=== PATIENT | female | born 1995 | race Native Hawaiian/Other Pacific Islander ===

== ENCOUNTER 2024-03-28 18:09 | Inpatient (IN) | payer OTHER ==
[~2024-03-28] VITALS: Ht 157.5 cm; Wt 75.5 kg
[2024-03-28 22:06] VITALS: BP 135/87; PULSE 93; RESP 18; TEMP 98.3; O2SAT 97
[2024-03-28] MEDS ORDERED: ONDANSETRON HCL 4 MG/2 ML VIAL IV PRN (23:30)
[2024-03-28] MEDS ORDERED: MORPHINE SULFATE INJ 2 MG/ml SYRG IV PRN (23:30)
[2024-03-28] MEDS ORDERED: DOCUSATE SOD 100 MG CAP PO PRN (23:30)
[2024-03-28] MEDS ORDERED: HYDROcodone-ACET 5/325MG TAB PO PRN (23:30)
[2024-03-28] MEDS ORDERED: NITROGLYCERIN 0.4 MG SL TAB SL PRN (23:30)
[2024-03-28 23:39] VITALS: BP 135/87; PULSE 93; RESP 18; TEMP 98.3; O2SAT 97
[2024-03-29] VITALS (7 sets, daily range): BP systolic 102–157; BP diastolic 57–95; PULSE 72–95; RESP 16–20; TEMP 97.4–98.6; O2SAT 96–100
[2024-03-29 00:03] LABS: Monocytes # (auto) 0.7 10 ^3/uL (0-1.3); Neutrophils # (auto) 8.8 10 ^3/uL (1.6-8.6)
[2024-03-29 00:04] LABS: Basophils # (auto) 0.1 10 ^3/uL (0-0.2); Basophils % (auto) 0.7 % (0.0-2.0); Eosinophils # (auto) 0.1 10 ^3/uL (0-0.8); Eosinophils % (auto) 0.5 % (0.0-7.0); Hemoglobin 9.6 g/dL (12.2-16.2); Lymphocytes # (auto) 1.6 10 ^3/uL (0.4-5.4); Lymphocytes % (auto) 14.3 % (10.0-50.0); Mean Corpuscular Hemoglobin 26.3 pg (28.0-32.0); Mean Corpuscular Hgb Conc. 32.2 g/dL (32.0-36.0); Mean Corpuscular Volume 81.7 fL (80.0-100.0); Monocytes % (auto) 6.1 % (0.0-12.0); Neutrophils % (auto) 78.4 % (37.0-80.0); Red Blood Cells 3.67 10^6/uL (4.0-5.20); Red Cell Distribution Width 15.2 % (11.8-14.3); White Blood Cell 11.2 10^3/uL (4.4-10.8)
[2024-03-29 00:19] LABS: Albumin 3.8 g/dL (3.2-4.8); Alkaline Phosphatase 87 U/L (46-116); Anion Gap 8 (5-15); Aspartate Aminotransferase < 8 U/L (13-40); Calcium 9.1 mg/dL (8.5-10.1); Carbon Dioxide 22 mmol/L (20-30); Chloride 106 mmol/L (98-107); Glucose 117 mg/dL (74-106); Potassium 3.4 mmol/L (3.5-5.1); Sodium 136 mmol/L (136-145)
[2024-03-29 00:20] LABS: Bilirubin, Total 0.3 mg/dL (0.2-1.0); Total Protein 6.6 g/dL (5.7-8.2)
[2024-03-29 00:21] LABS: Alanine Aminotransferase < 9 U/L (7-40); BUN/Creatinine Ratio 9.4 (10.0-20.0); Blood Urea Nitrogen < 5 mg/dL (9-23)
[2024-03-29] MEDS: ACETAMINOPHEN 325 MG TAB PO PRN (01:10)
[2024-03-29] MEDS: SODIUM CHLORIDE 0.9% 1,000 ML IV SCH (01:10)
[2024-03-29] MEDS ORDERED: PREN27TA7 OR (01:47)
[2024-03-29] MEDS ORDERED: ASPI-543 PO (01:47)
[2024-03-29] MEDS ORDERED: FERR1TAB31 PO (01:47)
[2024-03-29] MEDS: ceFAZolin 1GM/50ML 50 ML IV SCH (06:01)
[2024-03-29 06:52] LABS: Basophils # (auto) 0 10 ^3/uL (0-0.2); Basophils % (auto) 0.3 % (0.0-2.0); Eosinophils # (auto) 0 10 ^3/uL (0-0.8); Eosinophils % (auto) 0.3 % (0.0-7.0); Hematocrit 28.7 % (36.0-46.0); Hemoglobin 9.2 g/dL (12.2-16.2); Lymphocytes # (auto) 1.7 10 ^3/uL (0.4-5.4); Mean Corpuscular Hemoglobin 26.2 pg (28.0-32.0); Mean Corpuscular Hgb Conc. 32.2 g/dL (32.0-36.0); Mean Corpuscular Volume 81.4 fL (80.0-100.0); Monocytes # (auto) 0.8 10 ^3/uL (0-1.3); Monocytes % (auto) 7.7 % (0.0-12.0); Neutrophils # (auto) 8.1 10 ^3/uL (1.6-8.6); Neutrophils % (auto) 75.7 % (37.0-80.0); Red Blood Cells 3.52 10^6/uL (4.0-5.20); Red Cell Distribution Width 15.2 % (11.8-14.3); White Blood Cell 10.7 10^3/uL (4.4-10.8)
[2024-03-29 07:05] LABS: Albumin 3.5 g/dL (3.2-4.8); Alkaline Phosphatase 81 U/L (46-116); Anion Gap 6 (5-15); Aspartate Aminotransferase < 8 U/L (13-40); Calcium 8.9 mg/dL (8.7-10.4); Carbon Dioxide 25 mmol/L (20-30); Chloride 106 mmol/L (98-107); Glucose 87 mg/dL (74-106); Potassium 3.5 mmol/L (3.5-5.1); Sodium 137 mmol/L (136-145)
[2024-03-29 07:06] LABS: Bilirubin, Total 0.4 mg/dL (0.2-1.0); Total Protein 6.4 g/dL (5.7-8.2)
[2024-03-29 07:17] LABS: Alanine Aminotransferase < 9 U/L (7-40); BUN/Creatinine Ratio 10.9 (10.0-20.0); Blood Urea Nitrogen < 5 mg/dL (9-23)
[2024-03-29] MEDS ORDERED: cefTRIAXone 1GM/50ML D5W 50 ML IV ONE (17:55)
[2024-03-29] MEDS: cefTRIAXone 1GM/50ML D5W 50 ML IV SCH (17:57)
[2024-03-29] MEDS: CLINDAMYCIN 300MG IV 50 ML IV SCH (22:28)
[2024-03-30] VITALS (8 sets, daily range): BP systolic 96–112; BP diastolic 56–68; PULSE 83–100; RESP 16–18; TEMP 98–98.4; O2SAT 96–99
[2024-03-30 06:46] LABS: Basophils # (auto) 0 10 ^3/uL (0-0.2); Basophils % (auto) 0.3 % (0.0-2.0); Eosinophils # (auto) 0 10 ^3/uL (0-0.8); Mean Corpuscular Hgb Conc. 32.5 g/dL (32.0-36.0); Monocytes # (auto) 0.6 10 ^3/uL (0-1.3); Nucleated Red Blood Cells % 0.1 %; Red Cell Distribution Width 15.3 % (11.8-14.3)
[2024-03-30 06:49] LABS: Eosinophils % (auto) 0.2 % (0.0-7.0); Hematocrit 27.6 % (36.0-46.0); Lymphocytes # (auto) 1.5 10 ^3/uL (0.4-5.4); Lymphocytes % (auto) 13.5 % (10.0-50.0); Mean Corpuscular Hemoglobin 26.3 pg (28.0-32.0); Mean Corpuscular Volume 81.1 fL (80.0-100.0); Monocytes % (auto) 5.6 % (0.0-12.0); Neutrophils # (auto) 8.8 10 ^3/uL (1.6-8.6); Neutrophils % (auto) 80.4 % (37.0-80.0); White Blood Cell 10.9 10^3/uL (4.4-10.8)
[2024-03-30 06:50] LABS: INR 0.96 (0.9-1.15); Partial Thromboplastin Time 24.4 SEC (24.5-34.5); Prothrombin Time 10.2 sec (9.3-11.8)
[2024-03-30 07:04] LABS: Chloride 107 mmol/L (98-107); Potassium 3.8 mmol/L (3.5-5.1); Sodium 136 mmol/L (136-145)
[2024-03-30 07:05] LABS: Anion Gap 7 (5-15); Carbon Dioxide 22 mmol/L (20-30)
[2024-03-30 07:06] LABS: Calcium 8.8 mg/dL (8.7-10.4)
[2024-03-30 07:13] LABS: Blood Urea Nitrogen < 5 mg/dL (9-23)
[2024-03-30 07:42] LABS: Glucose 103 mg/dL (74-106)
[2024-03-30] MEDS ORDERED: fentaNYL CITRATE 100 MCG/2 ML VL ONE (11:45)
[2024-03-30] MEDS ORDERED: PROPOFOL 10 MG/ML 20 ML IV ONE (11:45)
[2024-03-30] MEDS ORDERED: LIDOCAINE 2% (LOCAL ANESTH.) PF 5ml SDV ONE (11:46)
[2024-03-30] MEDS ORDERED: ONDANSETRON HCL 4 MG/2 ML VIAL IV ONE (12:30)
[2024-03-30] MEDS ORDERED: HYDROmorphone HCL 2 MG/ML VL/or syr IV PRN (12:30)
[2024-03-30] MEDS ORDERED: MORPHINE SULFATE INJ 2 MG/ml SYRG IV PRN (12:45)
[2024-03-30] MEDS ORDERED: HYDROmorphone HCL 2 MG/ML VL/or syr ONE (12:53)
[2024-03-30] MEDS ORDERED: ONDANSETRON HCL 4 MG/2 ML VIAL ONE (12:54)
[2024-03-30] MEDS: HYDROmorphone HCL 2 MG/ML VL/or syr IV PRN (12:57)
[2024-03-31] VITALS (8 sets, daily range): BP systolic 101–127; BP diastolic 52–72; PULSE 59–97; RESP 16–18; TEMP 97.8–98.3; O2SAT 94–100
[2024-03-31 06:38] LABS: Basophils # (auto) 0 10 ^3/uL (0-0.2); Basophils % (auto) 0.4 % (0.0-2.0); Eosinophils # (auto) 0.1 10 ^3/uL (0-0.8); Eosinophils % (auto) 0.6 % (0.0-7.0); Red Blood Cells 3.44 10^6/uL (4.0-5.20)
[2024-03-31 06:42] LABS: Hematocrit 27.8 % (36.0-46.0); Hemoglobin 8.9 g/dL (12.2-16.2); Lymphocytes # (auto) 1.7 10 ^3/uL (0.4-5.4); Lymphocytes % (auto) 17.7 % (10.0-50.0); Mean Corpuscular Hemoglobin 25.8 pg (28.0-32.0); Mean Corpuscular Hgb Conc. 31.8 g/dL (32.0-36.0); Monocytes # (auto) 0.6 10 ^3/uL (0-1.3); Monocytes % (auto) 6.4 % (0.0-12.0); Neutrophils # (auto) 7.2 10 ^3/uL (1.6-8.6); Neutrophils % (auto) 74.9 % (37.0-80.0); Red Cell Distribution Width 15.3 % (11.8-14.3); White Blood Cell 9.6 10^3/uL (4.4-10.8)
[2024-03-31 06:45] LABS: Anion Gap 6 (5-15); Carbon Dioxide 24 mmol/L (20-30); Chloride 107 mmol/L (98-107); Potassium 3.8 mmol/L (3.5-5.1); Sodium 137 mmol/L (136-145)
[2024-03-31 06:47] LABS: Calcium 8.6 mg/dL (8.5-10.1)
[2024-03-31 06:52] LABS: Glucose 93 mg/dL (74-106)
[2024-03-31 07:03] LABS: BUN/Creatinine Ratio 11.1 (10.0-20.0); Blood Urea Nitrogen < 5 mg/dL (9-23)
[2024-03-31] MEDS: PRENATAL VITAMIN TAB PO SCH (12:50)
[2024-04-01] VITALS (9 sets, daily range): BP systolic 99–134; BP diastolic 51–99; PULSE 84–105; RESP 14–20; TEMP 97.8–99.1; O2SAT 96–98
[2024-04-01 07:09] LABS: Basophils # (auto) 0 10 ^3/uL (0-0.2); Basophils % (auto) 0.4 % (0.0-2.0); Eosinophils # (auto) 0.1 10 ^3/uL (0-0.8); Hemoglobin 8.7 g/dL (12.2-16.2); Monocytes # (auto) 0.6 10 ^3/uL (0-1.3); Neutrophils # (auto) 6.4 10 ^3/uL (1.6-8.6)
[2024-04-01 07:12] LABS: Hematocrit 26.7 % (36.0-46.0); Lymphocytes # (auto) 1.6 10 ^3/uL (0.4-5.4); Lymphocytes % (auto) 18.3 % (10.0-50.0); Mean Corpuscular Hemoglobin 26.4 pg (28.0-32.0); Mean Corpuscular Hgb Conc. 32.4 g/dL (32.0-36.0); Mean Corpuscular Volume 81.3 fL (80.0-100.0); Monocytes % (auto) 6.5 % (0.0-12.0); Neutrophils % (auto) 73.8 % (37.0-80.0); Nucleated Red Blood Cells % 0.1 %; Red Blood Cells 3.28 10^6/uL (4.0-5.20); White Blood Cell 8.7 10^3/uL (4.4-10.8)
[2024-04-02 01:00] VITALS: BP 104/62; PULSE 81; RESP 14; TEMP 98.6; O2SAT 97
[2024-04-02 05:00] VITALS: BP 110/61; PULSE 67; RESP 14; TEMP 98; O2SAT 97
[2024-04-02 08:00] VITALS: BP 112/69; PULSE 76; RESP 16; TEMP 98; O2SAT 91
[2024-04-02 09:00] VITALS: BP 112/69; PULSE 76; RESP 16; TEMP 98; O2SAT 91
[2024-04-02] MEDS ORDERED: CEPH500C PO (12:59)
[2024-04-02 13:00] VITALS: BP 120/75; PULSE 66; RESP 16; TEMP 98.1; O2SAT 99
[2024-04-02 13:02] VITALS: BP 120/75; PULSE 66; RESP 16; TEMP 98.1; O2SAT 99
== END 2024-04-02 15:50 | disposition home or self-care (01) | DRG 819 ==
LOC: WEST WING 22:01
PROVIDERS: ADMIT Nurse Practitioner Family; ATTEND Nurse Practitioner Acute Care
PROC: 0H9U0ZZ Drainage of Left Breast, Open Approach (ICD-10-PCS; principal; 2024-03-30 11:40)
DX: O91.213 Nonpurulent mastitis associated with pregnancy, third trimester (principal); O91.113 Abscess of breast associated with pregnancy, third trimester; O99.213 Obesity complicating pregnancy, third trimester; Z3A.28 28 weeks gestation of pregnancy; Z80.3 Family history of malignant neoplasm of breast; Z79.82 Long term (current) use of aspirin; Z79.899 Other long term (current) drug therapy
CPT/HCPCS: 36415; 76642; 76805; 80048; 80053; 85025; 85610; 85730; 86850; 86900; 86901; 87070; 87075; 87205; G0378; J2001; J2405; J2704; J3490

== ENCOUNTER 2024-07-04 13:13 | Inpatient (IN) | payer OTHER ==
[~2024-07-04] VITALS: Ht 157.5 cm; Wt 14.8 kg
[~2024-07-04 13:13] MED LIST: ASPI-543 PO; CEPH500C PO; FERR1TAB31 PO; PREN27TA7 OR
[2024-07-04 15:13] VITALS: BP 150/94; PULSE 86; RESP 18; TEMP 98.6; O2SAT 97
[2024-07-04 16:00] VITALS: BP 147/90; PULSE 72; RESP 18; TEMP 98.6; O2SAT 97
[2024-07-04] MEDS ORDERED: ONDANSETRON HCL 4 MG/2 ML VIAL IV PRN (16:15)
[2024-07-04] MEDS ORDERED: VANCOMYCIN PER PHARMACY 0 MG IV SCH (16:15)
[2024-07-04] MEDS ORDERED: HYDROmorphone HCL 2 MG/ML VL/or syr IV PRN (16:15)
[2024-07-04] MEDS: VANCOMYCIN 1GM/200ML 200 ML IV ONE (17:24)
[2024-07-04] MEDS: ACETAMINOPHEN 325 MG TAB PO PRN (17:40)
[2024-07-04] MEDS ORDERED: PIPERACILLIN-TAZOB 3.375GM 100 ML IV ONE (18:00)
[2024-07-04] MEDS: PIPERACILLIN-TAZOB 3.375GM 100 ML IV ONE (18:19)
[2024-07-04 18:55] LABS: Eosinophils # (auto) 0.1 10 ^3/uL (0-0.8); Eosinophils % (auto) 1.2 % (0.0-7.0); Hematocrit 41.2 % (36.0-46.0); Hemoglobin 13.4 g/dL (12.2-16.2); Lymphocytes # (auto) 1.9 10 ^3/uL (0.4-5.4); Nucleated Red Blood Cells % 0.1 %; Red Cell Distribution Width 18.1 % (11.8-14.3); White Blood Cell 7.1 10^3/uL (4.4-10.8)
[2024-07-04 18:56] LABS: Basophils # (auto) 0 10 ^3/uL (0-0.2); Basophils % (auto) 0.7 % (0.0-2.0); Lymphocytes % (auto) 26.2 % (10.0-50.0); Mean Corpuscular Hemoglobin 26.4 pg (28.0-32.0); Mean Corpuscular Hgb Conc. 32.5 g/dL (32.0-36.0); Mean Corpuscular Volume 81.2 fL (80.0-100.0); Monocytes # (auto) 0.3 10 ^3/uL (0-1.3); Monocytes % (auto) 4.7 % (0.0-12.0); Neutrophils # (auto) 4.8 10 ^3/uL (1.6-8.6); Neutrophils % (auto) 67.2 % (37.0-80.0); Platelet Count (auto) 322 10^3/uL (140-450); Red Blood Cells 5.08 10^6/uL (4.0-5.20)
[2024-07-04 19:10] LABS: Prothrombin Time 10.6 sec (9.3-11.8)
[2024-07-04 19:14] LABS: Alanine Aminotransferase 19 U/L (7-40); Albumin 4.5 g/dL (3.2-4.8); Alkaline Phosphatase 84 U/L (46-116); Anion Gap 6 (5-15); Aspartate Aminotransferase 14 U/L (13-40); BUN/Creatinine Ratio 10.6 (10.0-20.0); Bilirubin, Total 0.4 mg/dL (0.2-1.0); Blood Urea Nitrogen 7 mg/dL (9-23); CRP High Sensitivity 0.84 mg/dL (<1.0); Calcium 9.1 mg/dL (8.7-10.4); Carbon Dioxide 26 mmol/L (20-30); Chloride 108 mmol/L (98-107); Glucose 86 mg/dL (74-106); Potassium 3.8 mmol/L (3.5-5.1); Sodium 140 mmol/L (136-145); Total Protein 7.4 g/dL (5.7-8.2)
[2024-07-04] MEDS: LACTATED RINGER'S 1,000 ML IV SCH (19:30)
[2024-07-04 20:00] VITALS: PULSE 72; RESP 18; O2SAT 97
[2024-07-04] MEDS: SODIUM CHLOR 0.9% PF (SALINE LOCK) 10ML VIAL/SYR IV SCH (21:33)
[2024-07-05] MEDS: VANCOMYCIN 1GM/200ML 200 ML IV SCH ×2 (01:28→21:06)
[2024-07-05] MEDS: PIPERACILLIN-TAZOB 3.375GM 100 ML IV SCH (02:45)
[2024-07-05 07:21] LABS: Alanine Aminotransferase 12 U/L (7-40); Alkaline Phosphatase 77 U/L (46-116); Anion Gap 7 (5-15); BUN/Creatinine Ratio 8.7 (10.0-20.0); Blood Urea Nitrogen 6 mg/dL (9-23); Calcium 8.9 mg/dL (8.7-10.4); Carbon Dioxide 23 mmol/L (20-30); Chloride 109 mmol/L (98-107); Glucose 90 mg/dL (74-106); Potassium 3.7 mmol/L (3.5-5.1); Sodium 139 mmol/L (136-145)
[2024-07-05 07:22] LABS: Albumin 4.1 g/dL (3.2-4.8); Aspartate Aminotransferase 14 U/L (13-40); Basophils # (auto) 0.1 10 ^3/uL (0-0.2); Basophils % (auto) 0.9 % (0.0-2.0); Eosinophils # (auto) 0.2 10 ^3/uL (0-0.8); Eosinophils % (auto) 2.8 % (0.0-7.0); Hematocrit 40.8 % (36.0-46.0); Hemoglobin 13.5 g/dL (12.2-16.2); Lymphocytes # (auto) 1.4 10 ^3/uL (0.4-5.4); Mean Corpuscular Hgb Conc. 33.2 g/dL (32.0-36.0); Mean Corpuscular Volume 81.2 fL (80.0-100.0); Monocytes # (auto) 0.4 10 ^3/uL (0-1.3); Monocytes % (auto) 6.1 % (0.0-12.0); Neutrophils # (auto) 3.9 10 ^3/uL (1.6-8.6); Neutrophils % (auto) 66.2 % (37.0-80.0); Nucleated Red Blood Cells % 0.1 %; Platelet Count (auto) 262 10^3/uL (140-450); Red Blood Cells 5.02 10^6/uL (4.0-5.20); Red Cell Distribution Width 17.7 % (11.8-14.3); White Blood Cell 5.9 10^3/uL (4.4-10.8)
[2024-07-05 07:23] LABS: Bilirubin, Total 0.6 mg/dL (0.2-1.0); Total Protein 6.8 g/dL (5.7-8.2)
[2024-07-05 09:00] VITALS: BP 139/102; PULSE 70; RESP 14; TEMP 98.2; O2SAT 99
[2024-07-05 13:00] VITALS: BP 151/88; PULSE 65; RESP 16; TEMP 98.5; O2SAT 100
[2024-07-05 17:00] VITALS: BP 124/77; PULSE 77; RESP 18; TEMP 98.4; O2SAT 97
[2024-07-05 20:00] VITALS: PULSE 75; RESP 21; O2SAT 98
[2024-07-05 21:00] VITALS: BP 136/91; PULSE 75; RESP 21; TEMP 97.8; O2SAT 98
[2024-07-06 01:00] VITALS: BP 138/94; PULSE 73; RESP 20; TEMP 98.1; O2SAT 96
[2024-07-06 05:00] VITALS: BP 138/91; PULSE 69; RESP 18; TEMP 98.3; O2SAT 98
[2024-07-06 06:34] LABS: Basophils # (auto) 0 10 ^3/uL (0-0.2); Basophils % (auto) 0.5 % (0.0-2.0); Lymphocytes # (auto) 1.4 10 ^3/uL (0.4-5.4); Monocytes # (auto) 0.4 10 ^3/uL (0-1.3); Neutrophils # (auto) 4.8 10 ^3/uL (1.6-8.6); White Blood Cell 6.8 10^3/uL (4.4-10.8)
[2024-07-06 06:38] LABS: Eosinophils # (auto) 0.2 10 ^3/uL (0-0.8); Eosinophils % (auto) 2.4 % (0.0-7.0); Hematocrit 40.6 % (36.0-46.0); Hemoglobin 13.4 g/dL (12.2-16.2); Lymphocytes % (auto) 20.4 % (10.0-50.0); Mean Corpuscular Hemoglobin 26.9 pg (28.0-32.0); Mean Corpuscular Volume 81.6 fL (80.0-100.0); Monocytes % (auto) 6.5 % (0.0-12.0); Neutrophils % (auto) 70.2 % (37.0-80.0); Nucleated Red Blood Cells % 0.2 %; Platelet Count (auto) 272 10^3/uL (140-450); Red Blood Cells 4.98 10^6/uL (4.0-5.20); Red Cell Distribution Width 17.8 % (11.8-14.3)
[2024-07-06 06:49] LABS: Alanine Aminotransferase 11 U/L (7-40); Albumin 4.3 g/dL (3.2-4.8); Alkaline Phosphatase 78 U/L (46-116); Anion Gap 7 (5-15); Aspartate Aminotransferase 11 U/L (13-40); Blood Urea Nitrogen 9 mg/dL (9-23); Calcium 9.2 mg/dL (8.7-10.4); Carbon Dioxide 25 mmol/L (20-30); Chloride 107 mmol/L (98-107); Glucose 119 mg/dL (74-106); Potassium 4.2 mmol/L (3.5-5.1); Sodium 139 mmol/L (136-145)
[2024-07-06 06:50] LABS: Bilirubin, Total 0.5 mg/dL (0.2-1.0); Total Protein 7.1 g/dL (5.7-8.2)
[2024-07-06 09:13] VITALS: BP 144/101; PULSE 71; RESP 17; TEMP 98.8; O2SAT 98
[2024-07-06 20:00] VITALS: PULSE 65; RESP 20; O2SAT 98
[2024-07-06 21:00] VITALS: BP 151/96; PULSE 65; RESP 20; TEMP 97.7; O2SAT 98
[2024-07-07 01:00] VITALS: BP 141/89; PULSE 73; RESP 20; TEMP 97.8; O2SAT 99
[2024-07-07 05:00] VITALS: BP 123/84; PULSE 58; RESP 20; TEMP 97.9; O2SAT 98
[2024-07-07 08:00] VITALS: BP 118/86; PULSE 64; PULSE 74; RESP 17; RESP 18; TEMP 97.9; O2SAT 97; O2SAT 98
[2024-07-07 08:42] LABS: Basophils # (auto) 0 10 ^3/uL (0-0.2); Basophils % (auto) 0.6 % (0.0-2.0); Lymphocytes # (auto) 1.6 10 ^3/uL (0.4-5.4); Lymphocytes % (auto) 23.5 % (10.0-50.0); Monocytes # (auto) 0.4 10 ^3/uL (0-1.3); Red Blood Cells 5.12 10^6/uL (4.0-5.20)
[2024-07-07 08:44] LABS: Eosinophils # (auto) 0.2 10 ^3/uL (0-0.8); Eosinophils % (auto) 2.3 % (0.0-7.0); Hematocrit 41.8 % (36.0-46.0); Hemoglobin 13.6 g/dL (12.2-16.2); Mean Corpuscular Hemoglobin 26.6 pg (28.0-32.0); Mean Corpuscular Hgb Conc. 32.5 g/dL (32.0-36.0); Mean Corpuscular Volume 81.7 fL (80.0-100.0); Monocytes % (auto) 5.5 % (0.0-12.0); Neutrophils # (auto) 4.6 10 ^3/uL (1.6-8.6); Neutrophils % (auto) 68.1 % (37.0-80.0); Nucleated Red Blood Cells % 0.1 %; Platelet Count (auto) 290 10^3/uL (140-450); Red Cell Distribution Width 17.8 % (11.8-14.3); White Blood Cell 6.8 10^3/uL (4.4-10.8)
[2024-07-07 09:05] LABS: Alanine Aminotransferase 13 U/L (7-40); Albumin 4.5 g/dL (3.2-4.8); Alkaline Phosphatase 78 U/L (46-116); Anion Gap 4 (5-15); Aspartate Aminotransferase 14 U/L (13-40); BUN/Creatinine Ratio 10.3 (10.0-20.0); Bilirubin, Total 0.6 mg/dL (0.2-1.0); Blood Urea Nitrogen 8 mg/dL (9-23); Calcium 9.5 mg/dL (8.7-10.4); Carbon Dioxide 26 mmol/L (20-30); Chloride 108 mmol/L (98-107); Glucose 92 mg/dL (74-106); Potassium 4.4 mmol/L (3.5-5.1); Sodium 138 mmol/L (136-145); Total Protein 7.4 g/dL (5.7-8.2)
[2024-07-07] MEDS: HYDROcodone-ACET 5/325MG TAB PO PRN (10:06)
[2024-07-07 17:00] VITALS: BP 110/80; PULSE 74; RESP 17; TEMP 97; O2SAT 98
[2024-07-07 21:00] VITALS: BP 156/93; PULSE 63; RESP 20; TEMP 98.5; O2SAT 100
[2024-07-08 05:00] VITALS: BP 127/80; PULSE 59; RESP 19; TEMP 97.5; O2SAT 98
[2024-07-08 07:12] LABS: Basophils # (auto) 0 10 ^3/uL (0-0.2); Eosinophils # (auto) 0.2 10 ^3/uL (0-0.8); Eosinophils % (auto) 2.9 % (0.0-7.0); Hemoglobin 13.6 g/dL (12.2-16.2); Neutrophils % (auto) 66.5 % (37.0-80.0); Platelet Count (auto) 270 10^3/uL (140-450)
[2024-07-08 07:14] LABS: Basophils % (auto) 0.8 % (0.0-2.0); Hematocrit 41.2 % (36.0-46.0); Lymphocytes # (auto) 1.4 10 ^3/uL (0.4-5.4); Lymphocytes % (auto) 22.3 % (10.0-50.0); Mean Corpuscular Hemoglobin 26.9 pg (28.0-32.0); Mean Corpuscular Volume 81.4 fL (80.0-100.0); Monocytes # (auto) 0.5 10 ^3/uL (0-1.3); Monocytes % (auto) 7.5 % (0.0-12.0); Neutrophils # (auto) 4.2 10 ^3/uL (1.6-8.6); Nucleated Red Blood Cells % 0.2 %; Red Blood Cells 5.07 10^6/uL (4.0-5.20); Red Cell Distribution Width 17.9 % (11.8-14.3); White Blood Cell 6.4 10^3/uL (4.4-10.8)
[2024-07-08 07:31] LABS: Alanine Aminotransferase 12 U/L (7-40); Alkaline Phosphatase 73 U/L (46-116); Anion Gap 7 (5-15); BUN/Creatinine Ratio 9.6 (10.0-20.0); Blood Urea Nitrogen 7 mg/dL (9-23); Calcium 9.5 mg/dL (8.7-10.4); Carbon Dioxide 24 mmol/L (20-30); Chloride 108 mmol/L (98-107); Glucose 93 mg/dL (74-106); Sodium 139 mmol/L (136-145)
[2024-07-08 07:33] LABS: Albumin 4.4 g/dL (3.2-4.8); Aspartate Aminotransferase 14 U/L (13-40); Bilirubin, Total 0.4 mg/dL (0.2-1.0); Total Protein 7.3 g/dL (5.7-8.2)
[2024-07-08 08:00] VITALS: PULSE 74; RESP 14
[2024-07-08 09:00] VITALS: BP 135/89; PULSE 74; RESP 14; TEMP 98.4; O2SAT 98
[2024-07-08] MEDS: cefTRIAXone 1GM/50ML D5W 50 ML IV SCH (09:11)
[2024-07-08] MEDS ORDERED: SACC1CAP3 PO (09:16)
[2024-07-08] MEDS ORDERED: CLIN-203 PO (09:16)
[2024-07-08 13:00] VITALS: BP 126/71; PULSE 65; RESP 16; TEMP 98; O2SAT 98
== END 2024-07-08 14:00 | disposition home or self-care (01) | DRG 601 ==
LOC: WEST WING 14:38
PROVIDERS: ADMIT Internal Medicine; ATTEND Internal Medicine
PROC: 0H9U3ZZ Drainage of Left Breast, Percutaneous Approach (ICD-10-PCS; principal; 2024-07-07)
DX: N61.1 Abscess of the breast and nipple (principal); I16.0 Hypertensive urgency; N64.89 Other specified disorders of breast; Z80.3 Family history of malignant neoplasm of breast
CPT/HCPCS: 36415; 75989; 76642; 80053; 80202; 81025; 83605; 85025; 85610; 86141; 87040; 87081; 87205; C1729; G0378; J2543